=== PATIENT | female | born 1950 | race Caucasian/White ===

== ENCOUNTER 2020-08-23 19:48 | Inpatient (IN) | payer MEDICARE ==
[~2020-08-23] VITALS: Ht 165.1 cm; Wt 106.6 kg
[2020-08-23] MEDS ORDERED: ZYPREXA PO (20:10)
[2020-08-23] MEDS ORDERED: ABILIFY PO (20:10)
[2020-08-23] MEDS ORDERED: ASPI81TA31 PO (20:10)
[2020-08-23] MEDS ORDERED: OMEP20TA5 PO (20:10)
[2020-08-23] MEDS ORDERED: ACETAMINOPHEN ES 500 MG TABLET ONE (22:12)
[2020-08-23] MEDS ORDERED: ACETAMINOPHEN ES 500 MG TABLET PO ONE (22:15)
[2020-08-24] MEDS ORDERED: LORAZEPAM 0.5 MG TABLET PO PRN (02:00)
[2020-08-24] MEDS ORDERED: ZOLPIDEM 5 MG TABLET PO PRN (02:00)
[2020-08-24 02:45] VITALS: BP 136/67
[2020-08-24] MEDS: PANTOPRAZOLE SODIUM 40 MG TABLET.DR PO SCH (06:24)
[2020-08-24 07:30] VITALS: BP 144/69
[2020-08-24] MEDS: ASPIRIN 81 MG TAB.CHEW PO SCH (08:02)
[2020-08-24] MEDS ORDERED: PNEUMOCOCCAL 23-VAL P-SAC VAC 0.5 ML VIAL IM ONE (09:00)
[2020-08-24] MEDS ORDERED: INFLUENZA VACCINE 2020-2021 0.5 ML DISP.SYRIN IM ONE (09:00)
[2020-08-24] MEDS: OLANZAPINE 2.5 MG TABLET PO SCH ×2 (09:49→16:12)
[2020-08-24] MEDS: MAG HYDROX/AL HYDROX/SIMETH 30 ML LIQUID UDC PO PRN ×2 (10:00→20:15)
[2020-08-24 16:00] VITALS: BP 152/78
[2020-08-24 20:28] VITALS: BP 120/56
[2020-08-24] MEDS: ACETAMINOPHEN 325 MG TABLET PO PRN (22:01)
[2020-08-25] MEDS: ACETAMINOPHEN 325 MG TABLET PO PRN (05:36)
[2020-08-25] MEDS: PANTOPRAZOLE SODIUM 40 MG TABLET.DR PO SCH (06:32)
[2020-08-25 07:30] VITALS: BP 145/80
[2020-08-25] MEDS: ASPIRIN 81 MG TAB.CHEW PO SCH (08:25)
[2020-08-25] MEDS: OLANZAPINE 2.5 MG TABLET PO SCH ×2 (08:25→17:09)
[2020-08-25] MEDS: MAGNESIUM HYDROXIDE 30 ML LIQUID UDC PO PRN (09:33)
[2020-08-25 16:29] LABS: *BILIRUBIN,URIN NEGATIVE (NEGATIVE); *BLOOD, URINE NEGATIVE (NEGATIVE); *CLARITY,URINE CLEAR (CLEAR); *COLOR,URINE LIGHT YELLOW (YELLOW); *KETONES,URINE NEGATIVE (NEGATIVE); *UROBILINOGEN,URINE 0.2 E.U./dl (NORMAL); LEUKOCYTE ESTERASE ,URINE TRACE (NEGATIVE); NITRITE, URINE NEGATIVE (NEGATIVE); UGLUCOSE NEGATIVE (NEGATIVE)
[2020-08-25 20:43] VITALS: BP 129/66
[2020-08-25 21:51] LABS: BACTERIA,URINE NONE SEEN /HPF (NONE SEEN); MUCUS,URINE FEW /LPF (0-FEW); RBC,URINE 0-3 /HPF (0-3); SQUAMOUS EPITHELIAL CELL,UR FEW /HPF (NONE SEEN)
[2020-08-26] MEDS: PANTOPRAZOLE SODIUM 40 MG TABLET.DR PO SCH (06:40)
[2020-08-26 07:30] VITALS: BP 134/79
[2020-08-26] MEDS: ASPIRIN 81 MG TAB.CHEW PO SCH (08:35)
[2020-08-26] MEDS ORDERED: OLANZAPINE 2.5 MG TABLET PO SCH (09:00)
[2020-08-26 09:26] LABS: BASOPHILS # (AUTO) 0.1 K/uL (0.0-8.0); BASOPHILS % (AUTO) 0.7 % (0.0-2.0); EOSINOPHILS # (AUTO) 0.1 K/uL (0.0-0.7); EOSINOPHILS % (AUTO) 1.4 % (0.0-7.0); HEMATOCRIT 41.1 % (31.2-41.9); HEMOGLOBIN 13.4 g/dL (10.9-14.3); LYMPHOCYTES # (AUTO) 1.8 K/uL (20.0-40.0); LYMPHOCYTES % (AUTO) 23.8 % (20.5-51.5); MEAN CORPUSCULAR HEMOGLOBIN 27.3 uug (24.7-32.8); MEAN CORPUSCULAR HGB CONC 33 g/dL (32.3-35.6); MEAN CORPUSCULAR VOLUME 83.7 fL (75.5-95.3); MONOCYTES # (AUTO) 0.5 K/uL (2.0-10.0); MONOCYTES % (AUTO) 7.1 % (0.0-11.0); NEUTROPHILS # (AUTO) 5.1 K/uL (1.8-8.9); PLATELET COUNT (AUTO) 291 K/uL (179-408); RED BLOOD CELL COUNT(AUTO) 4.91 MIL/uL (3.63-4.92); WHITE BLOOD COUNT (AUTO) 7.6 K/uL (3.8-11.8)
[2020-08-26 09:40] LABS: CREATININE 0.8 mg/dL (0.6-1.3); PHOSPHOROUS 3.4 mg/dL (2.5-4.9); POTASSIUM 3.9 mmol/L (3.5-5.1)
[2020-08-26] MEDS: OLANZAPINE 5 MG TABLET PO SCH ×2 (09:51→16:19)
[2020-08-26 09:52] LABS: THYROID STIMULATING HORMONE 2.57 mIU/mL (0.358-3.740)
[2020-08-26] MEDS: CEphaleXIN 500 MG CAPSULE PO SCH (16:19)
[2020-08-26 17:01] VITALS: BP 141/80
[2020-08-26 20:32] VITALS: BP 133/63
[2020-08-26] MEDS: MELATONIN 3 MG TABLET PO SCH (20:35)
[2020-08-27] MEDS: LORAZEPAM 1 MG TABLET PO PRN (02:31)
[2020-08-27] MEDS: PANTOPRAZOLE SODIUM 40 MG TABLET.DR PO SCH (06:33)
[2020-08-27 07:30] VITALS: BP 141/79
[2020-08-27] MEDS: ASPIRIN 81 MG TAB.CHEW PO SCH (08:42)
[2020-08-27] MEDS: OLANZAPINE 5 MG TABLET PO SCH ×2 (08:42→20:35)
[2020-08-27] MEDS: CEphaleXIN 500 MG CAPSULE PO SCH ×2 (08:44→16:38)
[2020-08-27 16:00] VITALS: BP 121/75
[2020-08-27 20:28] VITALS: BP 130/63
[2020-08-27] MEDS: MELATONIN 3 MG TABLET PO SCH (20:34)
[2020-08-28] MEDS: LORAZEPAM 1 MG TABLET PO PRN (01:33)
[2020-08-28] MEDS: MAGNESIUM HYDROXIDE 30 ML LIQUID UDC PO PRN (06:35)
[2020-08-28] MEDS: PANTOPRAZOLE SODIUM 40 MG TABLET.DR PO SCH (07:05)
[2020-08-28 07:30] VITALS: BP 141/74
[2020-08-28] MEDS: ASPIRIN 81 MG TAB.CHEW PO SCH (08:39)
[2020-08-28] MEDS: CEphaleXIN 500 MG CAPSULE PO SCH ×2 (08:39→16:34)
[2020-08-28] MEDS: OLANZAPINE 5 MG TABLET PO SCH ×2 (08:39→20:16)
[2020-08-28] MEDS: ACETAMINOPHEN 325 MG TABLET PO PRN (11:45)
[2020-08-28 16:00] VITALS: BP 138/78
[2020-08-28 19:55] VITALS: BP 138/62
[2020-08-28] MEDS: MELATONIN 3 MG TABLET PO SCH (20:15)
[2020-08-28] MEDS: MAG HYDROX/AL HYDROX/SIMETH 30 ML LIQUID UDC PO PRN (21:33)
[2020-08-29] MEDS: PANTOPRAZOLE SODIUM 40 MG TABLET.DR PO SCH (06:32)
[2020-08-29 07:30] VITALS: BP 146/87
[2020-08-29] MEDS: ASPIRIN 81 MG TAB.CHEW PO SCH (08:48)
[2020-08-29] MEDS: CEphaleXIN 500 MG CAPSULE PO SCH ×2 (08:48→16:35)
[2020-08-29] MEDS: OLANZAPINE 5 MG TABLET PO SCH ×2 (08:49→20:56)
[2020-08-29 16:00] VITALS: BP 101/59
[2020-08-29] MEDS: MAG HYDROX/AL HYDROX/SIMETH 30 ML LIQUID UDC PO PRN (18:47)
[2020-08-29] MEDS: MELATONIN 3 MG TABLET PO SCH (20:56)
[2020-08-29] MEDS: ACETAMINOPHEN 325 MG TABLET PO PRN (20:56)
[2020-08-29 22:00] VITALS: BP 113/74
[2020-08-30] MEDS: ACETAMINOPHEN 325 MG TABLET PO PRN (05:17)
[2020-08-30] MEDS: PANTOPRAZOLE SODIUM 40 MG TABLET.DR PO SCH (05:52)
[2020-08-30 07:30] VITALS: BP 121/75
[2020-08-30] MEDS: CEphaleXIN 500 MG CAPSULE PO SCH ×2 (09:02→18:13)
[2020-08-30] MEDS: ASPIRIN 81 MG TAB.CHEW PO SCH (09:02)
[2020-08-30] MEDS: OLANZAPINE 5 MG TABLET PO SCH ×2 (09:03→21:35)
[2020-08-30] MEDS: MAG HYDROX/AL HYDROX/SIMETH 30 ML LIQUID UDC PO PRN (09:19)
[2020-08-30 15:48] VITALS: BP 130/64
[2020-08-30 20:24] VITALS: BP 144/70
[2020-08-30] MEDS: MELATONIN 3 MG TABLET PO SCH (21:35)
[2020-08-31] MEDS: PANTOPRAZOLE SODIUM 40 MG TABLET.DR PO SCH (06:24)
[2020-08-31 07:30] VITALS: BP 147/78
[2020-08-31] MEDS: ASPIRIN 81 MG TAB.CHEW PO SCH (09:03)
[2020-08-31] MEDS: CEphaleXIN 500 MG CAPSULE PO SCH (09:03)
[2020-08-31] MEDS: OLANZAPINE 5 MG TABLET PO SCH ×2 (09:04→20:35)
[2020-08-31 16:00] VITALS: BP 156/65
[2020-08-31] MEDS: MELATONIN 3 MG TABLET PO SCH (20:35)
[2020-08-31 20:52] VITALS: BP 127/67
[2020-09-01] MEDS: LORAZEPAM 1 MG TABLET PO PRN (01:55)
[2020-09-01] MEDS: MAGNESIUM HYDROXIDE 30 ML LIQUID UDC PO PRN (01:55)
[2020-09-01] MEDS: PANTOPRAZOLE SODIUM 40 MG TABLET.DR PO SCH (06:40)
[2020-09-01 07:30] VITALS: BP 150/71
[2020-09-01] MEDS: OLANZAPINE 5 MG TABLET PO SCH ×2 (08:06→20:05)
[2020-09-01] MEDS: ASPIRIN 81 MG TAB.CHEW PO SCH (08:06)
[2020-09-01] MEDS: ACETAMINOPHEN 325 MG TABLET PO PRN (08:06)
[2020-09-01] MEDS ORDERED: BISACODYL 5 MG TABLET.DR PO ONE (14:00)
[2020-09-01 15:31] VITALS: BP 169/92
[2020-09-01 20:28] VITALS: BP 162/85
[2020-09-01] MEDS: MELATONIN 3 MG TABLET PO SCH (20:52)
[2020-09-01] MEDS ORDERED: DOCUSATE SODIUM 100 MG CAPSULE PO SCH (21:00)
[2020-09-02] MEDS: PANTOPRAZOLE SODIUM 40 MG TABLET.DR PO SCH (06:31)
[2020-09-02 07:30] VITALS: BP 127/68
[2020-09-02] MEDS: ASPIRIN 81 MG TAB.CHEW PO SCH (08:43)
[2020-09-02] MEDS: OLANZAPINE 5 MG TABLET PO SCH (08:43)
[2020-09-02] MEDS ORDERED: CLONIDINE HCL 0.1 MG TABLET PO PRN (09:15)
== END 2020-09-02 14:30 | DRG 885 ==
LOC: ER 19:48 → GPS 23:30
PROVIDERS: ADMIT Psychiatry & Neurology Psychiatry; ATTEND Registered Nurse
DX: F20.0 Paranoid schizophrenia (principal); N39.0 Urinary tract infection, site not specified; E44.1 Mild protein-calorie malnutrition; Z91.14 Patient's other noncompliance with medication regimen; K21.9 Gastro-esophageal reflux disease without esophagitis; E66.01 Morbid (severe) obesity due to excess calories; G62.9 Polyneuropathy, unspecified; Z91.19 Patient's noncompliance with other medical treatment and regimen; Z20.822 Contact with and (suspected) exposure to COVID-19; Z68.39 Body mass index [BMI] 39.0-39.9, adult
CPT/HCPCS: 36415; 83735; 84100; 84443; 85025; 90686; 90732; 93005; A4663; A9150